=== PATIENT | male | born 1995 | race Caucasian/White ===

== ENCOUNTER 2023-07-27 21:48 | Emergency (ER) | payer SELFPAY ==
[~2023-07-27] VITALS: Ht 162.6 cm; Wt 68.0 kg
[2023-07-27 21:59] VITALS: BP 138/79; PULSE 84; RESP 16; TEMP 98.1; O2SAT 99
[2023-07-27] MEDS ORDERED: NAPR-54 PO (22:19)
[2023-07-27] MEDS ORDERED: BACI-418 TP (22:19)
[2023-07-27] MEDS: BACITRACIN OINT 500 UNITS/GM PKT TP ONE (22:47)
[2023-07-27] MEDS: LIDOCAINE/EPI 1% 1:100000 20 ML VIAL INJ ONE (22:47)
[2023-07-27 23:16] VITALS: BP 138/79; PULSE 84; RESP 16; TEMP 98.1; O2SAT 99
== END 2023-07-27 23:16 | disposition home or self-care (01) ==
LOC: MED 21:48
DX: S61.412A Laceration without foreign body of left hand, initial encounter (principal); Z79.899 Other long term (current) drug therapy; W26.8XXA Contact with other sharp object(s), not elsewhere classified, initial encounter; Y93.89 Activity, other specified; Y92.89 Other specified places as the place of occurrence of the external cause; Y99.8 Other external cause status
CPT/HCPCS: 12001; 73140; 90471; 90715; 99283; J2001

== ENCOUNTER 2023-08-03 13:21 | Emergency (ER) | payer SELFPAY ==
[~2023-08-03] VITALS: Ht 162.6 cm; Wt 63.5 kg
[~2023-08-03 13:21] MED LIST: BACI-418 TP; NAPR-54 PO
[2023-08-03 13:38] VITALS: BP 122/79; PULSE 69; RESP 18; TEMP 97.8; O2SAT 97
== END 2023-08-03 14:07 | disposition home or self-care (01) ==
LOC: MED 13:21
DX: S61.215D Laceration without foreign body of left ring finger without damage to nail, subsequent encounter (principal); S61.217D Laceration without foreign body of left little finger without damage to nail, subsequent encounter; Z48.00 Encounter for change or removal of nonsurgical wound dressing; Z79.899 Other long term (current) drug therapy; X58.XXXD Exposure to other specified factors, subsequent encounter
CPT/HCPCS: 99282